=== PATIENT | male | born 2000 | race Caucasian/White ===

== ENCOUNTER → 2022-03-30 11:00 | Outpatient (CLI) | payer OTHER, SELFPAY ==
[2022-03-30 11:44] LABS: COVID19 -Nasal RAPID Negative (Negative)
== END ==
PROVIDERS: Referring Provider Orthopaedic Surgery; Visit Provider Orthopaedic Surgery
DX: Z20.822 Contact with and (suspected) exposure to COVID-19 (principal)
CPT/HCPCS: 87635; C9803

== ENCOUNTER 2022-03-31 10:42 | Day surgery (SDC) | payer OTHER, SELFPAY ==
[2022-03-16 14:55] VITALS: BMI 28.8
[2022-03-31] VITALS (8 sets, daily range): BP systolic 99–133; BP diastolic 57–84; PULSE 78–107; RESP 14–18; TEMP 36.6–36.9; O2SAT 96–103; BMI 28.8
[2022-03-31] MEDS: LACTATED RINGERS 1,000 ML 42 ML IV ×2 (10:57→14:20)
--- NOTE | 2022-03-31 12:03 | PM.PREOP ---
Pre-operative Note Interval Note History & Physical reviewed/Exam performed by Physician: Yes Changes to H&P: No
[2022-03-31] MEDS: TRANEXAMIC ACID 1,000 MG in SODIUM CHLORIDE 0.9% 100 ML 200 MG IV (12:25)
[2022-03-31] MEDS: CEFAZOLIN 2 GM/100 ML PREMIX 100 ML IV (12:35)
--- NOTE | 2022-03-31 12:55 | SUR.OPER ---
Supine on padded OR bed, head on pillow, arms secured on padded arm boards at <90 degrees abduction, legs uncrossed, safety belt at waist, tape over blanket over lower left leg, right leg draped free with padded knee brace on bed for flexion and padded lateral hip costume maker brace at hip .
[2022-03-31] MEDS: BUPIVACAINE 0.25% (PF) 30 ML, EPINEPHrine 0.15 MG INJ (13:17)
--- NOTE | 2022-03-31 14:54 | PM.OP.1 ---
Operative Date/Time/Diagnoses Date of procedure: 03/31/22 Time of procedure: 14:54 Pre-op diagnosis: Right anterior cruciate ligament tear Post-op diagnosis: same Procedure & Clinicians Procedure: Right anterior cruciate ligament reconstruction with patellar tendon autograft Same procedure as scheduled: Yes Indications: This is a 21-year-old male with a right ACL tear. He is performed all conservative measures and failed, he is still complaining of instability and would like surgical intervention for reconstruction of his ACL. All risks and benefits were discussed including the risk of bleeding, internal damage to structures, infection, failure of the graft and need for future surgery. No guarantees were made. He accepted all risks and wished to go for the surgery. Surgeon: Kamaljit Chowdhury Legal Billing Analyst: Kat Newsome Anesthesia Type: General Operative Notes Findings: Findings: Exam under anesthesia: 2B Joselito's with positive anterior drawer and positive visit shift Patellofemoral joint: Normal articulation and cartilage Medial and lateral gutters: No loose bodies noted Medial compartment: Medial meniscus is intact and medial tibial plateau with normal cartilage, medial femoral condyle also with normal cartilage Intercondylar notch: Intact PCL, incompetent ACL with empty lateral wall sign Lateral compartment: Lateral meniscus intact, lateral tibial plateau with normal cartilage, lateral femoral condyle also was normal cartilage Closure Type: primary Specimen(s): none sent Prosthetic devices, grafts, tissues, transplants, or devices: Arthrex Fast fix 8x20mm biocomposite screw Arthex fastfix 10x30 biocomposite screw Estimated Blood Loss (mL): 10 Blood products transfused: none Tourniquet time (min): 25 Procedure in detail: Description of operation: Patient was identified in the preoperative area. The correct right knee was marked with my initials. The patient was then brought into the operating room. A surgical pause was confirmed in the correct site of surgery was again identified. The patient was given perioperative IV antibiotics followed by induction of general anesthesia. A tourniquet was applied to the upper thigh. The lower extremity was then prepped and draped in a standard sterile fashion. After exam under anesthesia revealed an ACL insufficiency, the decision was made to proceed with ACL reconstruction. The leg was exsanguinated with an Esmarch bandage and the tourniquet was inflated to 250 mm hg. A longitudinal incision was made over the medial aspect of the patella tendon after pre-injection with Marcaine. Thick skin flaps were created. The paratenon was incised in the midline. A central 10 mm was harvested along with a bone plug on both sides. The graft was then taken to the back table and prepared by the physician assistant health educator. The patellar tendon was closed with 0 Vicryl, buried, simple interrupted sutures. A separate anterolateral portal was made. An anterior medial portal was made within the longitudinal incision. Once diagnostic arthroscopy was completed, the tourniquet was deflated for a total time of 25 minutes. There was a complete tear of the functional fibers of the anterior cruciate ligament. The remnant of the ligament was debrided. Minimal notchplasty was performed. The tibial anterior cruciate ligament guide was then inserted with the angle set at 55?. The tibial tunnel was then drilled with a 10 mm Reamer. A 7 mm [id number] femoral guide was then inserted through the medial portal. With the knee in 90? of flexion, a provisional graciela was made with a Beath pin. This position was then verified with the arthroscope in the anterior medial portal. Knee was then hyperflexed to approximately 120? and the guide was then used to pass the Beath pin through the medial portal. The pin exited anterior to the midline of the lateral thigh. A 10 Reamer was then used to drill the femoral tunnel. A shuttling suture was passed in the distal tail was pulled through the tibial tunnel. Bony debris was removed. There was an adequate back wall. A notch was used. The final autograft was then passed. Guide pin was inserted, followed by a 7 mm tap. The femoral side was fixed with a 8 by 20 mm BioComposite interference screw. The arthroscope was then removed. The knee was cycled a few dozen times to condition the graft. The solitary show 2 mm of lengthening in the terminal 0? of knee extension. The knee was then placed in 5? of knee flexion. A gentle posterior drawer force was applied with manual graft tension. The guide pin was inserted and a 7 mm tap was used. A 10 x 30 mm Arthrex Fast Fix BioComposite interference screw was used. This restored excellent stability with Joselito's and anterior drawer testing. The arthroscope was reinserted. The graft revealed excellent tension. There is no proud aspect of the screw. The knee was then suctioned dry. Any excess tibial bone plug was removed. The patellar and bone defect was grafted with excess tibial plug harvest. The paratenon was then closed. A layered skin closure was performed, followed by sterile dressings, cold therapy, and a hinged knee brace locked in full extension. The patient tolerated the procedure well without complications. Legal Billing Analyst attestation: A skilled assistant health educator (physician assistant health educator) was required throughout the case for graft preparation, tissue retraction, visualization and in order for smooth transition of the graft Complications: none Post-operative Condition: stable Disposition: PACU Plan for aftercare: Hinged knee brace locked in extension for 2 days after which he will start physical therapy and unlock the brace. He is to follow the physical therapy protocol for ACL rehabilitation. Dressings can come off in 3 days after which he can shower. He can replace the dressing then for 2 more days after which he can leave the dressings off and let it dry in air.
[2022-03-31] MEDS: OXYCODONE IR 5 MG TABLET PO (16:42)
--- NOTE | 2022-03-31 16:50 | SUR.PHASEII ---
Patient transferred to wheelchair with one person assist without difficulty. Patient stated crutches were in car with s.o. Tolerated po beverage and snack. Provided discharge instructions to patient and s.o.. They stated understanding. Discharged by wheelchair to private vehicle in stable condition. See flowsheet for assessment details.
== END 2022-03-31 16:45 | disposition home or self-care (01) ==
PROVIDERS: PCP Student in an Organized Health Care Education/Training Program; Referring Provider Orthopaedic Surgery; Visit Provider Orthopaedic Surgery
PROC: (CPT 29888; principal; 2022-03-31 12:15)
DX: S83.511A Sprain of anterior cruciate ligament of right knee, initial encounter (principal); W01.0XXA Fall on same level from slipping, tripping and stumbling without subsequent striking against object, initial encounter; Y93.66 Activity, soccer; Y92.328 Other athletic field as the place of occurrence of the external cause
CPT/HCPCS: 29888; 01400; J0171; J0690; J2250; J2704; J3010

== ENCOUNTER → 2022-09-04 16:44 | Outpatient (CLI) | payer OTHER, SELFPAY ==
[2022-09-04 17:42] LABS: Add Manual Diff / Slide Review NO; Basophils Absolute Auto 0 /uL (0-100); Basophils Percent Auto 0.3 % (0-2); Eosinophils Absolute Auto 300 /uL (0-450); Eosinophils Percent Auto 3.3 % (2-4); Hemoglobin 14.3 g/dL (13.5-17.5); Lymphocytes Absolute Auto 3000 /uL (1100-4500); Lymphocytes Percent Auto 39.4 % (25-40); Mean Corpuscular HGB Conc 33.3 % (30-36); Mean Corpuscular Hemoglobin 26.1 PG (26-34); Mean Corpuscular Volume 78.5 fL (80-100); Monocytes Absolute Auto 400 /uL (0-900); Monocytes Percent Auto 5.3 % (3-14); Neutrophils Absolute Auto 4000 /uL (1500-7000); Neutrophils Percent Auto 51.7 % (50-75); Platelet Count 242 X10^3/uL (150-400); Red Blood Cell Count 5.48 X10^6/uL (4.5-5.9); Red Cell Distribution Width 14.3 % (11.6-14.8); White Blood Cell Count 7.7 X10^3/uL (4.5-11.0)
[2022-09-04 18:07] LABS: C-Reactive Protein Quant 0.8 mg/dL (<1.0)
[2022-09-04 19:09] LABS: Erythrocyte Sedimentation Rate 2 MM/HR (0-15)
== END ==
PROVIDERS: PCP Student in an Organized Health Care Education/Training Program; Referring Provider Physician Assistant Medical; Visit Provider Physician Assistant Medical
DX: S83.511A Sprain of anterior cruciate ligament of right knee, initial encounter (principal); T84.53XA Infection and inflammatory reaction due to internal right knee prosthesis, initial encounter
CPT/HCPCS: 36415; 85025; 85651; 86140

== ENCOUNTER → 2022-09-15 08:04 | Outpatient (CLI) | payer OTHER, SELFPAY ==
--- NOTE | 2022-09-15 | DI.MRI.S_ITS ---
PROCEDURE: MR KNEE RT WO CON INDICATIONS: Pain in right knee TECHNIQUE: Noncontrast sagittal PD fast spin echo and T2 fast spin echo with fat saturation, sagittal 3-D FLASH with fat saturation; coronal T1 spin echo and PD fast spin echo with fat saturation, and axial PD fast spin echo with fat saturation through the knee. COMPARISON: [facility] [place], [place], XR KNEE 4+ VIEWS RIGHT, 09/04/2022, 15:15. FINDINGS: Image quality: Good Menisci: Medial: Intact. Meniscocapusular junction maintained. Lateral: Intact. Meniscopopliteal fascicles maintained. Cruciate ligaments: ACL graft replacement appears intact. Minimal edema surrounding the femoral and tibial tunnels. PCL is intact. Medial structures: MCL: Intact Pes anserine tendons: Intact Semimembranosus: Intact Lateral structures: LCL: Intact Biceps femoris: Intact IT band: Intact Popliteus tendon: Intact Anterior structures: Extensor mechanism: Status post patellar tendon harvest site, with moderate surrounding edema. Fat pads: There is Hoffa's fat pad edema, along with low signal intensity (6/18). Medial retinaculum: Intact. Trochlea: Unremarkable morphology. Bone and joint: Bones: No acute fracture Cartilage: No full-thickness defect. Joint space: Moderate joint effusion and evidence of synovitis versus tiny debris. Weeks's cyst: None Soft tissues: No significant vascular or other soft tissue pathology. IMPRESSION: ACL graft replacement is intact. The menisci are intact. There is edema in Hoffa's fat pad and surrounding the patellar tendon harvest site. Mild low signal intensity also seen in Hoffa's fat pad, possibly scarring. These findings should be correlated with timing of surgery. Correlate clinically for arthrofibrosis. Dictated by: Dylon Laguerre M.D. on 09/15/2022 at 9:55 Approved by: Dylon Laguerre M.D. on 09/15/2022 at 10:01
== END ==
PROVIDERS: PCP Student in an Organized Health Care Education/Training Program; Referring Provider Physician Assistant Medical; Visit Provider Physician Assistant Medical
DX: M25.561 Pain in right knee (principal)
CPT/HCPCS: 73721